=== PATIENT | female | born 1990 | race Caucasian/White ===

== ENCOUNTER 2017-08-10 16:51 | Emergency (ER) | END 2017-08-10 19:25 | disposition home or self-care (01) ==

== ENCOUNTER 2018-06-13 07:52 | Emergency (ER) | payer MEDICAID ==
[~2018-06-13] VITALS: Wt 61.6 kg
[~2018-06-13 07:52] MED LIST: CLIN300C10 PO; DOCU-144 PO; FAMO-96 PO; HYDR-3498 PO; IBUP-1542 PO
[2018-06-13 07:53] VITALS: BP 109/54; PULSE 81; RESP 17
[2018-06-13] MEDS ORDERED: KETOROLAC 30 MG INJ IM STA (08:23)
[2018-06-13] MEDS ORDERED: METHOCARBAMOL 750 MG TAB PO ONE (08:30)
--- NOTE | 2018-06-13 09:24 | ERD ---
ER Documentation Chief Complaint Chief Complaint LOW BACK PAIN, NO INJURY, ALSO REPORTS COUGH HPI 27-year-old female presents for low back pain times 3 days. Patient states that she has back pain on the left side. No injuries noted. She states that it is hard to stand or walk. She notes that the pain is 7 out of 10, constant, nonradiating. No prior similar symptoms. She denies fevers or chills. She denies dysuria. Denies history of cancer, denies history of back procedures, denies recent infection. ROS All systems reviewed and are negative except as per history of present illness. Medications Home Meds Active Scripts D-Methorphan Hb/P-Epd HCl/Bpm (Bcojybbaxz-Xrczvnnhcoi-Mf Syr) 118 Ml Syrup, 5 ML PO Q4H PRN for COUGH, #1 BOTTLE Prov:JOLENE HOBSON 06/13/18 Ibuprofen* (Motrin*) 800 Mg Tab, 800 MG PO TID PRN for PAIN, #30 TAB Prov:JOLENE HOBSON DO 06/13/18 Methocarbamol* (Robaxin*) 750 Mg Tablet, 750 MG PO TID for back pain, #30 TAB Prov:JAZLYNJOLENE 06/13/18 Ibuprofen* (Motrin*) 600 Mg Tab, 600 MG PO Q6H PRN for PAIN AND OR ELEVATED TEMP, #30 TAB Prov:GELY PEREZ PA-C 09/15/15 Cyclobenzaprine Hcl* (Cyclobenzaprine Hcl*) 10 Mg Tablet, 10 MG PO TID, #15 TAB Prov:GELY PEREZ PA-C 09/15/15 Ciprofloxacin Hcl* (Ciprofloxacin Hcl*) 500 Mg Tablet, 500 MG PO BID for 5 Days, TAB Prov:GELY PEREZ PA-C 09/15/15 Allergies Allergies: Coded Allergies: No Known Allergy (Unverified , 09/15/15) PMhx/Soc Medical and Surgical Hx: pt denies Medical Hx, pt denies Surgical Hx Hx Alcohol Use: Yes Hx Substance Use: No Hx Tobacco Use: No Physical Exam Vitals Vital Signs Date Temp Pulse Resp B/P (MAP) Pulse Ox O2 O2 Flow FiO2 Time Delivery Rate 06/13/18 98.4 81 17 109/54 99 07:53 (72) Physical Exam Const: No acute distress Resp: Clear to auscultation bilaterally Cardio: Regular rate and rhythm, no murmurs, bilateral dorsalis pedis pulses intact Abd: Soft, non tender, non distended. Normal bowel sounds Skin: No petechiae or rashes Back: Left paravertebral lumbar spine tenderness to palpation Ext: No cyanosis, or edema, 5 out of 5 muscle strength bilateral lower extremities Neur: Awake and alert, bilateral lower extremity sensation intact Psych: Normal Mood and Affect Results 24 hrs Laboratory Tests Test 06/13/18 08:31 06/13/18 08:34 06/13/18 08:36 Urine Color YELLOW Urine Clarity CLOUDY Urine pH 6.0 Urine Specific [place] 1.019 Urine Ketones NEGATIVE mg/dL Urine Nitrite NEGATIVE mg/dL Urine Bilirubin NEGATIVE mg/dL Urine Urobilinogen NEGATIVE mg/dL Urine Leukocyte Esterase NEGATIVE Betty/ul Urine Microscopic RBC 1 /HPF Urine Microscopic WBC 1 /HPF Urine Squamous Epithelial Cells FEW /HPF Urine Amorphous Crystals FEW /HPF Urine Bacteria FEW /HPF Urine Hemoglobin NEGATIVE mg/dL Urine Glucose NEGATIVE mg/dL Urine Total Protein NEGATIVE mg/dl Bedside Urine pH (LAB) 7.0 Bedside Urine Protein (LAB) Negative Bedside Urine Glucose (UA) Negative Bedside Urine Ketones (LAB) Negative Bedside Urine Blood Negative Bedside Urine Nitrite (LAB) Negative Bedside Urine Leukocyte Esterase Negative (L POC Beta HCG, Qualitative NEGATIVE Current Medications Medications Dose Sig/Danay Start Time Status Last (Trade) Ordered Route PRN Stop Time Admin Dose Reason Admin Ketorolac 30 mg ONCE STAT 06/13/18 DC 06/13/18 Tromethamine IM 08:23 08:47 (Toradol) 06/13/18 08:24 750 mg ONCE ONCE 06/13/18 DC 06/13/18 Methocarbamol PO 08:30 08:46 (Robaxin) 06/13/18 08:31 Procedures/MDM Medical Decision Making: Differential diagnosis includes but not limited to muscle strain, ligamentous sp rain, epidural abscess, osteomyelitis, osteoarthritis, herniated disc, compression fracture, aortic aneurysm, kidney stone, pyelonephritis, pancreatitis. Patient appeared well on physical examination. Nontoxic appearing. There was some moderate tenderness palpation of the lumbar paravertebral muscle on the left side. UA was negative for infection Urine test was negative Patient is low back pain likely musculoskeletal in nature. ED course: Patient was given Toradol and Robaxin. Symptoms improved with treatment. Prescription(s): Patient given prescription for Motrin and Robaxin. Patient advised to follow up with PCP in 1-2 days. Patient advised to return to ED for new or worsening symptoms. Patient stable on discharge from the ED. Disclaimer: Inadvertent spelling and grammatical errors are likely due to EHR/dictation software use and do not reflect on the overall quality of patient care. Also, please note that the electronic time recorded on this note does not necessarily reflect the actual time of the patient encounter. Departure Diagnosis: Primary Impression: Back pain Back pain location: low back pain Chronicity: acute Back pain laterality: left Sciatica presence: without sciatica Qualified Codes: M54.5 - Low back pain Condition: Fair Patient Instructions: Back Pain (Acute Or Chronic) Referrals: [facility] YOU HAVE RECEIVED A MEDICAL SCREENING EXAM AND THE RESULTS INDICATE THAT YOU DO NOT HAVE A CONDITION THAT REQUIRES URGENT TREATMENT IN THE EMERGENCY DEPARTMENT. FURTHER EVALUATION AND TREATMENT OF YOUR CONDITION CAN WAIT UNTIL YOU ARE SEEN IN YOUR DOCTORS OFFICE WITHIN THE NEXT 1-2 DAYS. IT IS YOUR RESPONSIBILITY TO MAKE AN APPOINTMENT FOR FOLOW-UP CARE. IF YOU HAVE A PRIMARY DOCTOR --you should call your primary doctor and schedule an appointment IF YOU DO NOT HAVE A PRIMARY DOCTOR YOU CAN CALL OUR PHYSICIAN REFERRAL HOTLINE AT IF YOU CAN NOT AFFORD TO SEE A PHYSICIAN YOU CAN CHOSE FROM THE FOLLOWING [facility] [address] [facility]. [facility] [address] [facility]. [facility] [address] [facility]. [facility] [address] [facility] [address] [facility]. [facility]. [address] Additional Instructions: Llame al doctor MAANA y shar elisha QUOC PARA DENTRO DE 1-2 LACEY.Dgale a la secretaria que nosotros le instruimos hacer esta quoc.Avise o llame si silver condicin se empeora antes de la quoc. Regresa aqui si peor o no mejor. JOLENE HOBSON DO Jun 13, 2018 09:24
== END 2018-06-13 09:31 | disposition home or self-care (01) ==
LOC: MERGE 07:52 → FTE 07:52
DX: M54.5 Low back pain (principal)
CPT/HCPCS: 81001; 81003; 81025; J1885; Z7610; 96372